=== PATIENT | male | born 1980 | race Caucasian/White ===

== ENCOUNTER 2018-06-29 20:06 | Inpatient (IN) | payer MEDICAID ==
[~2018-06-29] VITALS: Ht 180.3 cm; Wt 93.2 kg
[~2018-06-29 20:06] MED LIST: ALPR0.5T8 PO; METH-603 PO
[2018-06-29] MEDS ORDERED: temazepam 15mg capsule PO PRN (21:00)
[2018-06-29] MEDS ORDERED: albuterol 2.5 MG/3 ML nebule NEB ONE (21:05)
[2018-06-29] MEDS ORDERED: normal saline 1000ML IV soln IVB ONE (21:05)
[2018-06-29 21:28] LABS: BASOPHILS # (AUTO) 0.1 X10'3 (0-0.2); BASOPHILS % (AUTO) 1.1 % (0-1); EOSINOPHILS % (AUTO) 0.3 % (0-6); HEMATOCRIT 47.6 % (42.0-52.0); HEMOGLOBIN 15.8 g/dl (14.0-17.9); LYMPHOCYTES % (AUTO) 12.9 % (21-51); MEAN CORPUSCULAR HEMOGLOBIN 29.4 PG (27.0-31.0); MEAN CORPUSCULAR HGB CONC 33.1 % (33.0-36.5); MEAN CORPUSCULAR VOLUME 88.9 FL (78-98); MEAN PLATELET VOLUME 9.1 FL (7.4-10.4); MONOCYTES # (AUTO) 0.8 X10'3 (0-0.9); MONOCYTES % (AUTO) 10.4 % (2-12); NEUTROPHILS # (AUTO) 6.1 X10'3 (1.8-7.7); NEUTROPHILS % (AUTO) 75.3 % (42-75); PLATELET COUNT 191 X10'3 (140-440); RED BLOOD COUNT 5.35 X10'6 (4.70-6.10); RED CELL DISTRIBUTION WIDTH 14.7 % (11.5-14.5); WHITE BLOOD COUNT 8.1 X10'3 (4.5-11.0)
[2018-06-29 21:36] LABS: ABG BASE EXCESS 1.7 mmol/L (-2.0-3.0); ABG HCO3 25.1 mmol/L (22.0-26.0); ABG PCO2 (T) 36.1 mmHg (35.0-48.0); ABG PO2 (T) 63.2 mmHg (83-108); FCOHb 1.4 % (0.5-1.5); FLOW 6 L/min; FMetHb 0.1 % (0.3-1.12); FO2Hb 90.6 % (94-100); PATIENT TEMPERATURE 37.1; RESPIRATORY RATE (OBSERVED) 18 b/min; TOTAL HEMOGLOBIN 16.4 G/dl (14.0-18.0)
[2018-06-29 21:45] LABS: ALANINE AMINOTRANSFERASE 26 U/L (12-78); ALBUMIN 2.2 G/DL (3.4-5.0); ALBUMIN/GLOBULIN RATIO 0.4 (1.1-1.5); ALKALINE PHOSPHATASE 57 IU/L (46-116); ANION GAP 12 (8-16); ASPARTATE AMINO TRANSFERASE 32 U/L (10-37); BLOOD UREA NITROGEN 20 MG/DL (7-18); BUN/CREATININE RATIO 17.4 (5.4-32.0); CALCIUM 7.8 MG/DL (8.5-10.1); CHLORIDE 101 MMOL/L (99-107); CREATININE 1.15 MG/DL (0.60-1.10); GLUCOSE 98 MG/DL (70-104); POTASSIUM 3.1 MMOL/L (3.5-5.1); SODIUM 139 MMOL/L (135-145); TOTAL CARBON DIOXIDE 25.7 MMOL/L (24-32); TOTAL PROTEIN 7.7 G/DL (6.4-8.2); eGFR 71 ML/MIN
[2018-06-29 21:54] LABS: CREATINE KINASE 164 U/L (39-308); MAGNESIUM 2.9 MG/DL (1.5-2.4)
[2018-06-29 21:55] LABS: INR 1.1 INR; PARTIAL THROMBOPLASTIN TIME 29 SECONDS (22-32); PROTHROMBIN TIME 11.4 SECONDS (9.0-12.0)
[2018-06-29] MEDS ORDERED: diphenhydrAMINE 50 mg/ml inj IV PRN (23:50)
[2018-06-29] MEDS ORDERED: HYDROcodone/acetaminophen 5mg/325mg tablet PO PRN (23:50)
[2018-06-29] MEDS ORDERED: morphine 2 MG/ML inj. syringe IV PRN (23:50)
[2018-06-29] MEDS ORDERED: magnesium hydroxide 30ml (MOM) UD suspension PO PRN (23:50)
[2018-06-29] MEDS ORDERED: HYDROmorphone 1 mg/ml syringe IV PRN (23:50)
[2018-06-29] MEDS ORDERED: potassium Cl 40MEQ/NS 500ml 500 ML IV PRN ×2 (23:50)
[2018-06-29] MEDS ORDERED: potassium Cl 20 mEq SR tablet PO PRN ×2 (23:50)
[2018-06-29] MEDS ORDERED: acetaminophen 325mg tablet PO PRN ×2 (23:50)
[2018-06-29] MEDS ORDERED: diphenhydrAMINE 25mg capsule PO PRN (23:50)
[2018-06-29] MEDS ORDERED: acetaminophen 650mg rectal suppository RC PRN (23:50)
[2018-06-29] MEDS ORDERED: metoclopramide 5 mg/ml inj IV PRN (23:50)
[2018-06-29] MEDS ORDERED: mag hydrox/Alum hydrox/simeth 30ml oral suspension PO PRN (23:50)
[2018-06-29] MEDS ORDERED: bisacodyl 10mg suppository rectal RC PRN (23:50)
[2018-06-30] MEDS: normal saline 1000ml 1,000 ML IV SCH ×3 (00:54→21:39)
[2018-06-30] MEDS: piperacillin/tazo 3.375gm/50ml 50 ML IV SCH ×2 (00:54→07:32)
[2018-06-30 02:39] LABS: URINE AMPHETAMINE SCREEN NEGATIVE (Neg); URINE BARBITUATE SCREEN NEGATIVE (Neg); URINE BENZODIAZEPINES SCREEN POSITIVE (Neg); URINE CANNABINOID SCREEN NEGATIVE (Neg); URINE COCAINE SCREEN NEGATIVE (Neg); URINE METHADONE SCREEN POSITIVE (Neg); URINE OPIATE SCREEN POSITIVE (Neg); URINE PHENCYCLIDINE SCREEN NEGATIVE (Neg)
[2018-06-30 02:46] LABS: COLOR,URINE YELLOW (Yellow); GLUCOSE, URINE NEGATIVE (Neg); KETONES,URINE NEGATIVE (Neg); LEUKOCYTE ESTERASE ,URINE NEGATIVE (Neg); NITRITES, URINE NEGATIVE (Neg); OCCULT BLOOD,URINE NEGATIVE (Neg); PROTEIN,URINE NEGATIVE (Neg); UROBILINOGEN,URINE 0.2 E.U/dL (0.2-1.0)
[2018-06-30 02:57] LABS: UA COLLECTION TYPE CLN CATCH MIDSTREAM
[2018-06-30 02:58] LABS: CLARITY,URINE CLEAR (Clear)
[2018-06-30] MEDS ORDERED: iohexol 350MG/ML 100ml bottle IV ONE (06:23)
[2018-06-30] MEDS: oseltamivir phos 75mg capsule PO SCH ×2 (07:31→21:41)
[2018-06-30] MEDS: docusate sod 100mg capsule PO SCH ×2 (07:31→20:00)
[2018-06-30] MEDS: heparin, porcine 5000 units/ml vial SQ SCH ×3 (07:32→21:42)
[2018-06-30] MEDS ORDERED: vancomycin/NS 1 GM ADD-VANTAGE 250 ML IV SCH ×2 (08:00→20:00)
[2018-06-30] MEDS: K and/or MAG REPLACEMENT MC SCH (08:00)
[2018-06-30] MEDS: ALPRAZolam 0.5mg tablet PO SCH ×2 (08:08→21:41)
[2018-06-30 09:31] LABS: BASOPHILS # (AUTO) 0.1 X10'3 (0-0.2); BASOPHILS % (AUTO) 1.2 % (0-1); EOSINOPHILS # (AUTO) 0.1 X10'3 (0-0.9); EOSINOPHILS % (AUTO) 1.9 % (0-6); HEMATOCRIT 43.3 % (42.0-52.0); HEMOGLOBIN 14.4 g/dl (14.0-17.9); LYMPHOCYTES # (AUTO) 0.6 X10'3 (1.1-4.8); LYMPHOCYTES % (AUTO) 9.4 % (21-51); MEAN CORPUSCULAR HEMOGLOBIN 29.5 PG (27.0-31.0); MEAN CORPUSCULAR HGB CONC 33.3 % (33.0-36.5); MEAN CORPUSCULAR VOLUME 88.5 FL (78-98); MEAN PLATELET VOLUME 9.3 FL (7.4-10.4); MONOCYTES # (AUTO) 0.8 X10'3 (0-0.9); MONOCYTES % (AUTO) 11.5 % (2-12); PLATELET COUNT 153 X10'3 (140-440); RED CELL DISTRIBUTION WIDTH 14.7 % (11.5-14.5); WHITE BLOOD COUNT 6.6 X10'3 (4.5-11.0)
[2018-06-30 09:46] LABS: ALANINE AMINOTRANSFERASE 21 U/L (12-78); ALBUMIN 1.9 G/DL (3.4-5.0); ALBUMIN/GLOBULIN RATIO 0.4 (1.1-1.5); ALKALINE PHOSPHATASE 47 IU/L (46-116); ANION GAP 14 (8-16); ASPARTATE AMINO TRANSFERASE 31 U/L (10-37); BILIRUBIN,TOTAL 1.1 MG/DL (0.1-1.0); BLOOD UREA NITROGEN 25 MG/DL (7-18); BUN/CREATININE RATIO 13.2 (5.4-32.0); CALCIUM 7.1 MG/DL (8.5-10.1); CHLORIDE 104 MMOL/L (99-107); CREATININE 1.89 MG/DL (0.60-1.10); GLUCOSE 127 MG/DL (70-104); POTASSIUM 3.7 MMOL/L (3.5-5.1); SODIUM 139 MMOL/L (135-145); TOTAL CARBON DIOXIDE 21.5 MMOL/L (24-32); TOTAL PROTEIN 6.7 G/DL (6.4-8.2); eGFR 40 ML/MIN
[2018-06-30 11:18] LABS: LARGE PLATELETS FEW; PLATELET ESTIMATE NORMAL
[2018-06-30] MEDS: cefepime 1GM/NS ADD-VANTAGE 100 ML IV SCH ×2 (14:25→21:40)
[2018-06-30 16:05] VITALS: BP 125/81
[2018-06-30] MEDS: vancomycin inj 1,250 MG in normal saline 250ml IV soln 250 ML IV SCH ×2 (16:26→23:48)
[2018-06-30 19:00] VITALS: BP 151/84
[2018-06-30] MEDS: methadone 10mg tablet PO SCH (21:41)
[2018-06-30 23:00] VITALS: BP 125/75
[2018-07-01] MEDS: cefepime 1GM/NS ADD-VANTAGE 100 ML IV SCH ×3 (01:36→16:42)
[2018-07-01 03:00] VITALS: BP 128/75
[2018-07-01] MEDS: normal saline 1000ml 1,000 ML IV SCH ×2 (05:48→11:32)
[2018-07-01 05:49] LABS: BASOPHILS % (AUTO) 0.1 % (0-1); EOSINOPHILS # (AUTO) 0.1 X10'3 (0-0.9); EOSINOPHILS % (AUTO) 1.9 % (0-6); HEMATOCRIT 43.1 % (42.0-52.0); HEMOGLOBIN 14.1 g/dl (14.0-17.9); LYMPHOCYTES # (AUTO) 0.9 X10'3 (1.1-4.8); LYMPHOCYTES % (AUTO) 12.8 % (21-51); MEAN CORPUSCULAR HEMOGLOBIN 29.5 PG (27.0-31.0); MEAN CORPUSCULAR HGB CONC 32.7 % (33.0-36.5); MEAN PLATELET VOLUME 9.7 FL (7.4-10.4); MONOCYTES # (AUTO) 0.9 X10'3 (0-0.9); MONOCYTES % (AUTO) 11.7 % (2-12); NEUTROPHILS # (AUTO) 5.4 X10'3 (1.8-7.7); NEUTROPHILS % (AUTO) 73.5 % (42-75); PLATELET COUNT 186 X10'3 (140-440); RED BLOOD COUNT 4.79 X10'6 (4.70-6.10); RED CELL DISTRIBUTION WIDTH 14.9 % (11.5-14.5); WHITE BLOOD COUNT 7.4 X10'3 (4.5-11.0)
[2018-07-01 06:07] LABS: ALANINE AMINOTRANSFERASE 22 U/L (12-78); ALBUMIN/GLOBULIN RATIO 0.4 (1.1-1.5); ALKALINE PHOSPHATASE 39 IU/L (46-116); ANION GAP 9 (8-16); ASPARTATE AMINO TRANSFERASE 33 U/L (10-37); BILIRUBIN,TOTAL 0.9 MG/DL (0.1-1.0); BLOOD UREA NITROGEN 21 MG/DL (7-18); BUN/CREATININE RATIO 11.9 (5.4-32.0); CALCIUM 7.6 MG/DL (8.5-10.1); CHLORIDE 109 MMOL/L (99-107); CREATININE 1.77 MG/DL (0.60-1.10); GLUCOSE 84 MG/DL (70-104); POTASSIUM 3.8 MMOL/L (3.5-5.1); SODIUM 143 MMOL/L (135-145); TOTAL CARBON DIOXIDE 24.8 MMOL/L (24-32); eGFR 43 ML/MIN
[2018-07-01 07:00] VITALS: BP 149/85
[2018-07-01] MEDS: vancomycin inj 1,250 MG in normal saline 250ml IV soln 250 ML IV SCH (07:50)
[2018-07-01] MEDS: heparin, porcine 5000 units/ml vial SQ SCH ×2 (07:50→20:00)
[2018-07-01] MEDS: ALPRAZolam 0.5mg tablet PO SCH ×2 (07:51→22:01)
[2018-07-01] MEDS: oseltamivir phos 75mg capsule PO SCH ×2 (07:51→22:01)
[2018-07-01] MEDS: methadone 10mg tablet PO SCH (07:51)
[2018-07-01] MEDS: docusate sod 100mg capsule PO SCH ×2 (07:52→19:14)
[2018-07-01] MEDS: K and/or MAG REPLACEMENT MC SCH (07:52)
[2018-07-01 07:55] LABS: ABG BASE EXCESS -1.6 mmol/L (-2.0-3.0); ABG HCO3 20.8 mmol/L (22.0-26.0); ABG OXYGEN SATURATION 91.4 % (95-98); ABG PCO2 (T) 29.5 mmHg (35.0-48.0); ABG PH (T) 7.467 (7.350-7.450); ALLEN'S TEST Positive; FCOHb 0.9 % (0.5-1.5); FMetHb 0.2 % (0.3-1.12); FO2Hb 90.4 % (94-100); TOTAL HEMOGLOBIN 14.8 G/dl (14.0-18.0)
[2018-07-01 11:00] VITALS: BP 150/82
[2018-07-01] MEDS: ondansetron/PF 4mg/2ml inj IV PRN (11:30)
[2018-07-01 15:00] VITALS: BP 133/79
[2018-07-01] MEDS ORDERED: VANCOMYCIN LEVEL IV ONE (15:30)
[2018-07-01 19:00] VITALS: BP 145/95
[2018-07-01] MEDS: lactobacillus rhamnosus 10,000 MMU CELLS/CAPSULE PO SCH (22:00)
[2018-07-01 23:00] VITALS: BP 140/89
[2018-07-02] MEDS: ondansetron/PF 4mg/2ml inj IV PRN ×3 (00:51→19:06)
[2018-07-02] MEDS: cefepime 1GM/NS ADD-VANTAGE 100 ML IV SCH ×3 (00:52→16:49)
[2018-07-02] MEDS: normal saline 1000ml 1,000 ML IV SCH ×3 (01:48→20:31)
[2018-07-02 03:00] VITALS: BP 123/89
[2018-07-02 06:29] LABS: BASOPHILS % (AUTO) 0.3 % (0-1); EOSINOPHILS % (AUTO) 1.3 % (0-6); HEMATOCRIT 39.8 % (42.0-52.0); HEMOGLOBIN 13.7 g/dl (14.0-17.9); LYMPHOCYTES % (AUTO) 14.1 % (21-51); MEAN CORPUSCULAR HEMOGLOBIN 30.2 PG (27.0-31.0); MEAN CORPUSCULAR HGB CONC 34.4 % (33.0-36.5); MEAN CORPUSCULAR VOLUME 87.9 FL (78-98); MEAN PLATELET VOLUME 9.4 FL (7.4-10.4); MONOCYTES % (AUTO) 13.2 % (2-12); NEUTROPHILS # (AUTO) 4.7 X10'3 (1.8-7.7); NEUTROPHILS % (AUTO) 71.1 % (42-75); PLATELET COUNT 162 X10'3 (140-440); RED BLOOD COUNT 4.53 X10'6 (4.70-6.10); RED CELL DISTRIBUTION WIDTH 13.6 % (11.5-14.5); WHITE BLOOD COUNT 6.7 X10'3 (4.5-11.0)
[2018-07-02 06:30] LABS: EOSINOPHILS # (AUTO) 0.1 X10'3 (0-0.9); MONOCYTES # (AUTO) 0.9 X10'3 (0-0.9)
[2018-07-02 06:38] LABS: ALANINE AMINOTRANSFERASE 24 U/L (12-78); ALBUMIN/GLOBULIN RATIO 0.4 (1.1-1.5); ALKALINE PHOSPHATASE 43 IU/L (46-116); ANION GAP 10 (8-16); ASPARTATE AMINO TRANSFERASE 27 U/L (10-37); BILIRUBIN,TOTAL 0.8 MG/DL (0.1-1.0); BLOOD UREA NITROGEN 19 MG/DL (7-18); BUN/CREATININE RATIO 11.4 (5.4-32.0); CALCIUM 7.7 MG/DL (8.5-10.1); CHLORIDE 108 MMOL/L (99-107); CREATININE 1.66 MG/DL (0.60-1.10); GLUCOSE 79 MG/DL (70-104); POTASSIUM 4.4 MMOL/L (3.5-5.1); SODIUM 141 MMOL/L (135-145); TOTAL CARBON DIOXIDE 22.7 MMOL/L (24-32); TOTAL PROTEIN 6.8 G/DL (6.4-8.2); eGFR 47 ML/MIN
[2018-07-02 07:00] VITALS: BP 144/92
[2018-07-02] MEDS: K and/or MAG REPLACEMENT MC SCH (08:00)
[2018-07-02] MEDS: ALPRAZolam 0.5mg tablet PO SCH ×2 (09:17→20:30)
[2018-07-02] MEDS: lactobacillus rhamnosus 10,000 MMU CELLS/CAPSULE PO SCH ×2 (09:17→20:30)
[2018-07-02] MEDS: methadone 10mg tablet PO SCH (09:18)
[2018-07-02] MEDS: oseltamivir phos 75mg capsule PO SCH ×2 (09:18→20:30)
[2018-07-02] MEDS: docusate sod 100mg capsule PO SCH ×2 (09:21→19:22)
[2018-07-02] MEDS: heparin, porcine 5000 units/ml vial SQ SCH ×2 (09:24→20:30)
[2018-07-02 11:00] VITALS: BP 137/88
[2018-07-02 15:00] VITALS: BP 134/78
[2018-07-02 19:00] VITALS: BP 142/86
[2018-07-02 23:00] VITALS: BP 134/81
[2018-07-03 03:00] VITALS: BP 133/83
[2018-07-03 06:10] LABS: ALANINE AMINOTRANSFERASE 27 U/L (12-78); ALBUMIN 2.1 G/DL (3.4-5.0); ALBUMIN/GLOBULIN RATIO 0.4 (1.1-1.5); ALKALINE PHOSPHATASE 43 IU/L (46-116); ANION GAP 9 (8-16); ASPARTATE AMINO TRANSFERASE 24 U/L (10-37); BILIRUBIN,TOTAL 0.8 MG/DL (0.1-1.0); BLOOD UREA NITROGEN 18 MG/DL (7-18); CHLORIDE 107 MMOL/L (99-107); CREATININE 1.64 MG/DL (0.60-1.10); GLUCOSE 84 MG/DL (70-104); POTASSIUM 4.4 MMOL/L (3.5-5.1); SODIUM 139 MMOL/L (135-145); TOTAL CARBON DIOXIDE 22.7 MMOL/L (24-32); eGFR 47 ML/MIN
[2018-07-03 06:20] LABS: BASOPHILS % (AUTO) 0.3 % (0-1); EOSINOPHILS # (AUTO) 0.1 X10'3 (0-0.9); EOSINOPHILS % (AUTO) 2.1 % (0-6); HEMATOCRIT 41.3 % (42.0-52.0); HEMOGLOBIN 13.6 g/dl (14.0-17.9); LYMPHOCYTES # (AUTO) 0.9 X10'3 (1.1-4.8); LYMPHOCYTES % (AUTO) 12.7 % (21-51); MEAN CORPUSCULAR HEMOGLOBIN 29.4 PG (27.0-31.0); MEAN CORPUSCULAR HGB CONC 32.9 % (33.0-36.5); MEAN CORPUSCULAR VOLUME 89.3 FL (78-98); MEAN PLATELET VOLUME 11.9 FL (7.4-10.4); MONOCYTES # (AUTO) 0.9 X10'3 (0-0.9); MONOCYTES % (AUTO) 11.8 % (2-12); NEUTROPHILS # (AUTO) 5.3 X10'3 (1.8-7.7); NEUTROPHILS % (AUTO) 73.1 % (42-75); PLATELET COUNT 234 X10'3 (140-440); RED BLOOD COUNT 4.62 X10'6 (4.70-6.10); RED CELL DISTRIBUTION WIDTH 13.9 % (11.5-14.5); WHITE BLOOD COUNT 7.3 X10'3 (4.5-11.0)
[2018-07-03 07:00] VITALS: BP 123/80
[2018-07-03] MEDS: heparin, porcine 5000 units/ml vial SQ SCH (08:00)
[2018-07-03] MEDS: docusate sod 100mg capsule PO SCH (08:00)
[2018-07-03] MEDS: lactobacillus rhamnosus 10,000 MMU CELLS/CAPSULE PO SCH (08:12)
[2018-07-03] MEDS: oseltamivir phos 75mg capsule PO SCH (08:12)
[2018-07-03] MEDS: ALPRAZolam 0.5mg tablet PO SCH (08:12)
[2018-07-03] MEDS: methadone 10mg tablet PO SCH (08:12)
[2018-07-03] MEDS: normal saline 1000ml 1,000 ML IV SCH (08:15)
[2018-07-03] MEDS: K and/or MAG REPLACEMENT MC SCH (08:15)
[2018-07-03 11:00] VITALS: BP 122/86
[2018-07-03] MEDS ORDERED: TAM75C PO (11:27)
[2018-07-03 19:09] LABS: HIV-1 RNA by PCR <40 copies/mL (.)
== END 2018-07-03 13:45 | disposition home or self-care (01) | DRG 133 ==
LOC: ER 20:07 → ED HOLD 23:48 → PCU 3S 06-30 14:21
PROVIDERS: ADMIT Family Medicine; ATTEND Family Medicine
PROC: B32T1ZZ Computerized Tomography (CT Scan) of Left Pulmonary Artery using Low Osmolar Contrast (ICD-10-PCS; principal; 2018-06-30)
PROC: B3201ZZ Computerized Tomography (CT Scan) of Thoracic Aorta using Low Osmolar Contrast (ICD-10-PCS; 2018-06-30)
PROC: B32S1ZZ Computerized Tomography (CT Scan) of Right Pulmonary Artery using Low Osmolar Contrast (ICD-10-PCS; 2018-06-30)
DX: J96.01 Acute respiratory failure with hypoxia (principal); J09.X1 Influenza due to identified novel influenza A virus with pneumonia; J18.1 Lobar pneumonia, unspecified organism; N17.9 Acute kidney failure, unspecified; J15.9 Unspecified bacterial pneumonia; E86.1 Hypovolemia; E87.6 Hypokalemia; F11.20 Opioid dependence, uncomplicated; F41.9 Anxiety disorder, unspecified; G89.29 Other chronic pain; Z88.1 Allergy status to other antibiotic agents
CPT/HCPCS: 36415; 36600; 71275; 80053; 80305; 81003; 82550; 82803; 83605; 83735; 83880; 84100; 84145; 84484; 85018; 85025; 85379; 85610; 85730; 87040; 87070; 87535; 93005; 94640; 94760; 96360; 99285; G0378; J0692; J1644; J2405; J2543; J3370; J3480; J7030; Q9967